=== PATIENT | female | born 1990 | race Caucasian/White ===

== ENCOUNTER 2022-05-03 17:33 | Emergency (ER) | payer MEDICAID, OTHER ==
[~2022-05-03] VITALS: Ht 175.3 cm; Wt 52.3 kg
[2022-05-03 17:42] VITALS: BP 159/106
[2022-05-03] MEDS ORDERED: LORazepam 1 MG tablet PO ONE (17:45)
[2022-05-03] MEDS ORDERED: diphenhydrAMINE 50 mg/ml inj IM ONE (17:45)
[2022-05-03] MEDS ORDERED: predniSONE 20 mg tablet PO ONE (17:55)
[2022-05-03] MEDS ORDERED: CLIN150C2 PO (19:46)
== END 2022-05-03 20:04 | disposition home or self-care (01) ==
LOC: ER 17:34
DX: F41.9 Anxiety disorder, unspecified (principal); R00.0 Tachycardia, unspecified; R45.1 Restlessness and agitation
CPT/HCPCS: 96372; 99283; J1200; J7512

== ENCOUNTER 2022-08-27 18:43 | Emergency (ER) | payer MEDICAID ==
[~2022-08-27] VITALS: Ht 175.3 cm; Wt 56.8 kg
--- NOTE | 2022-08-27 19:37 | NUR ---
agree with brenda-MECHANICAL TECH general assessment.
[2022-08-27 19:45] LABS: BASOPHILS # (AUTO) 0.1 X10'3 (0-0.2); BASOPHILS % (AUTO) 0.5 % (0-1); EOSINOPHILS % (AUTO) 0 % (0-6); HEMATOCRIT 39.3 % (35.0-45.0); HEMOGLOBIN 13.3 g/dl (12.0-16.0); LYMPHOCYTES # (AUTO) 1.1 X10'3 (1.1-4.8); LYMPHOCYTES % (AUTO) 10.5 % (21-51); MEAN CORPUSCULAR HGB CONC 33.8 g/dL (33.0-36.5); MEAN CORPUSCULAR VOLUME 88.9 FL (78-98); MEAN PLATELET VOLUME 7.2 FL (7.4-10.4); MONOCYTES # (AUTO) 0.4 X10'3 (0-0.9); MONOCYTES % (AUTO) 3.7 % (2-12); NEUTROPHILS # (AUTO) 8.6 X10'3 (1.8-7.7); NEUTROPHILS % (AUTO) 85.3 % (42-75); PLATELET COUNT 380 X10'3 (140-440); RED BLOOD COUNT 4.42 X10'6 (4.20-5.60); RED CELL DISTRIBUTION WIDTH 12.8 % (11.5-14.5)
[2022-08-27 19:45] LABS: COLOR,URINE YELLOW (Yellow); GLUCOSE, URINE NEGATIVE (Neg); KETONES,URINE >=80 mg/dl (Neg); LEUKOCYTE ESTERASE ,URINE NEGATIVE (Neg); NITRITES, URINE NEGATIVE (Neg); OCCULT BLOOD,URINE MODERATE (Neg); PH,URINE 6.5 (4.8-8.0); PROTEIN,URINE NEGATIVE (Neg); UROBILINOGEN,URINE 0.2 E.U/dL (0.2-1.0)
[2022-08-27 19:46] LABS: URINE HCG NEGATIVE (NEG)
[2022-08-27 19:50] LABS: CLARITY,URINE SLIGHTLY CLOUDY (Clear); UA COLLECTION TYPE CLN CATCH MIDSTREAM
[2022-08-27 19:51] LABS: BACTERIA,URINE NONE SEEN /HPF (Neg); SQUAMOUS EPITHELIAL CELL,UR FEW /LPF (FEW)
[2022-08-27 19:52] LABS: WBC,URINE 0-4 /HPF (0-4)
[2022-08-27 19:57] LABS: ALANINE AMINOTRANSFERASE 11 U/L (12-78); ALBUMIN 3.8 G/DL (3.4-5.0); ALBUMIN/GLOBULIN RATIO 1.3 (1.1-1.5); ALKALINE PHOSPHATASE 62 IU/L (46-116); ANION GAP 17 (8-16); ASPARTATE AMINO TRANSFERASE 30 U/L (10-37); BILIRUBIN,TOTAL 2.2 MG/DL (0.1-1.0); BLOOD UREA NITROGEN 4 MG/DL (7-18); BUN/CREATININE RATIO 6.3 (6.6-38.0); CALCIUM 7.9 MG/DL (8.5-10.1); CHLORIDE 91 MMOL/L (99-107); CREATININE 0.64 MG/DL (0.40-0.90); ETHANOL < 0.010 GM/DL (0.0-0.010); GLUCOSE 96 MG/DL (70-104); LIPASE < 50 U/L (73-393); SODIUM 125 MMOL/L (135-145); TOTAL CARBON DIOXIDE 16.8 MMOL/L (24-32); TOTAL PROTEIN 6.7 G/DL (6.4-8.2); eGFR > 90 ML/MIN
[2022-08-27 20:00] LABS: URINE AMPHETAMINE SCREEN NEGATIVE (Neg); URINE BARBITUATE SCREEN NEGATIVE (Neg); URINE BENZODIAZEPINES SCREEN NEGATIVE (Neg); URINE CANNABINOID SCREEN NEGATIVE (Neg); URINE COCAINE SCREEN NEGATIVE (Neg); URINE METHADONE SCREEN NEGATIVE (Neg); URINE OPIATE SCREEN NEGATIVE (Neg); URINE PHENCYCLIDINE SCREEN NEGATIVE (Neg)
[2022-08-27 20:02] LABS: POTASSIUM 2.8 MMOL/L (3.5-5.1)
[2022-08-27] MEDS ORDERED: normal saline 1000ml 1,000 ML IV ONE ×2 (20:10)
[2022-08-27] MEDS ORDERED: LORazepam 2 mg/ml vial IV ONE (20:10)
[2022-08-27] MEDS ORDERED: ondansetron/PF 4mg/2ml inj IV ONE (20:10)
[2022-08-27] MEDS ORDERED: potassium Cl 20 mEq SR tablet PO STA (20:22)
[2022-08-27] MEDS ORDERED: metoclopramide 5 mg/ml inj IV STA (20:22)
[2022-08-27 21:20] VITALS: BP 117/81
--- NOTE | 2022-08-27 21:32 | NUR ---
pt ambulated to rest room and back in room 15 with steady gait accompanied by family member.
[2022-08-27] MEDS ORDERED: ONDA4TAB12 PO (21:50)
[2022-08-27] MEDS ORDERED: LORA-269 PO (21:50)
== END 2022-08-27 22:08 | disposition home or self-care (01) ==
LOC: ER 18:43
DX: F41.9 Anxiety disorder, unspecified (principal); R11.2 Nausea with vomiting, unspecified
CPT/HCPCS: 36415; 80053; 80305; 80320; 81001; 81025; 83690; 85025; 96361; 96374; 96375; 99284; J2060; J2765; J7030

== ENCOUNTER 2023-01-03 16:40 | Emergency (ER) | payer MEDICAID ==
[~2023-01-03] VITALS: Ht 175.3 cm; Wt 52.8 kg
[~2023-01-03 16:40] MED LIST: LORA-269 PO; ONDA4TAB12 PO
[2023-01-03 16:56] VITALS: BP 126/84
[2023-01-03] MEDS ORDERED: AMOX-117 PO (18:31)
[2023-01-03] MEDS ORDERED: PRED20TA PO (18:31)
== END 2023-01-03 18:48 | disposition home or self-care (01) ==
LOC: ER 16:41
DX: R51.9 Headache, unspecified (principal); R42 Dizziness and giddiness; I10 Essential (primary) hypertension; R06.02 Shortness of breath; F41.9 Anxiety disorder, unspecified
CPT/HCPCS: 93005; 99283

== ENCOUNTER 2023-02-18 23:33 | Emergency (ER) | payer MEDICAID ==
[~2023-02-18] VITALS: Ht 175.3 cm; Wt 54.5 kg
[2023-02-18 23:47] VITALS: TEMP 98.7
[2023-02-19 00:11] LABS: ALANINE AMINOTRANSFERASE 12 U/L (12-78); ALBUMIN 4.5 G/DL (3.4-5.0); ALBUMIN/GLOBULIN RATIO 1.4 (1.1-1.5); ALKALINE PHOSPHATASE 63 IU/L (46-116); ANION GAP 12 (8-16); ASPARTATE AMINO TRANSFERASE 21 U/L (10-37); BILIRUBIN,TOTAL 1.4 MG/DL (0.1-1.0); BLOOD UREA NITROGEN 6 MG/DL (7-18); CALCIUM 9.3 MG/DL (8.5-10.1); CHLORIDE 102 MMOL/L (99-107); CREATININE 0.67 MG/DL (0.40-0.90); GLUCOSE 99 MG/DL (70-104); POTASSIUM 3.4 MMOL/L (3.5-5.1); SODIUM 138 MMOL/L (135-145); TOTAL PROTEIN 7.7 G/DL (6.4-8.2); eCRCL 106 ML/MIN; eGFR > 90 ML/MIN
[2023-02-19 00:19] LABS: PRO BRAIN NATRIURETIC PEPTIDE 49 PG/ML (0-125)
[2023-02-19 00:34] LABS: D-DIMER 0.24 MG/L FEU (0-0.50)
[2023-02-19 00:35] LABS: BASOPHILS % (AUTO) 0.5 % (0-1); EOSINOPHILS # (AUTO) 0.1 X10'3 (0-0.9); EOSINOPHILS % (AUTO) 0.7 % (0-6); HEMATOCRIT 42.6 % (35.0-45.0); HEMOGLOBIN 15.1 g/dl (12.0-16.0); LYMPHOCYTES # (AUTO) 3.5 X10'3 (1.1-4.8); LYMPHOCYTES % (AUTO) 38.1 % (21-51); MEAN CORPUSCULAR HEMOGLOBIN 30.5 PG (27.0-31.0); MEAN CORPUSCULAR HGB CONC 35.5 g/dL (33.0-36.5); MEAN CORPUSCULAR VOLUME 85.7 FL (78-98); MEAN PLATELET VOLUME 7.9 FL (7.4-10.4); MONOCYTES # (AUTO) 0.6 X10'3 (0-0.9); NEUTROPHILS % (AUTO) 53.7 % (42-75); PLATELET COUNT 259 X10'3 (140-440); RED BLOOD COUNT 4.97 X10'6 (4.20-5.60); RED CELL DISTRIBUTION WIDTH 12.3 % (11.5-14.5); WHITE BLOOD COUNT 9.2 X10'3 (4.5-11.0)
[2023-02-19 02:02] LABS: MAGNESIUM 2.2 MG/DL (1.5-2.4); THYROID STIMULATING HORMONE 3.11 ulU/ml (0.34-4.50)
[2023-02-19] MEDS ORDERED: LORazepam 0.5 MG tablet PO PRN (02:30)
[2023-02-19 03:23] LABS: ETHANOL < 10 MG/DL (<10)
[2023-02-19 05:30] VITALS: BP 109/71; PULSE 62; RESP 19; O2SAT 98
[2023-02-19] MEDS ORDERED: IBUP-1984 PO (06:46)
[2023-02-19] MEDS ORDERED: LORA-268 PO (06:46)
== END 2023-02-19 06:59 | disposition home or self-care (01) ==
LOC: ER 23:34
DX: M94.0 Chondrocostal junction syndrome [Tietze] (principal); M79.662 Pain in left lower leg; R06.02 Shortness of breath; F41.1 Generalized anxiety disorder; Z98.82 Breast implant status; Z79.899 Other long term (current) drug therapy
CPT/HCPCS: 36415; 71045; 80053; 80320; 83735; 83880; 84443; 84484; 85025; 85379; 93005; 99285

== ENCOUNTER 2023-08-03 18:20 | Emergency (ER) | payer MEDICAID ==
[~2023-08-03] VITALS: Ht 175.3 cm; Wt 54.5 kg
[~2023-08-03 18:20] MED LIST changes: +LORA-268 PO
[2023-08-03] MEDS ORDERED: PENI500T2 PO (19:30)
[2023-08-03] MEDS ORDERED: IBUP-1986 PO (19:30)
[2023-08-03] MEDS: penicillin V potassium 500mg tablet PO ONE (19:52)
[2023-08-03 20:09] VITALS: BP 120/68; PULSE 70; RESP 17; TEMP 98.3; O2SAT 98
== END 2023-08-03 20:11 | disposition home or self-care (01) ==
LOC: ER 18:20
DX: K08.89 Other specified disorders of teeth and supporting structures (principal); F41.9 Anxiety disorder, unspecified; Z72.89 Other problems related to lifestyle; Z79.899 Other long term (current) drug therapy
CPT/HCPCS: 99283